=== PATIENT | male | born 1995 | race Two or more races ===

== ENCOUNTER 2020-01-23 18:01 | Emergency (ER) | payer BC ==
[~2020-01-23] VITALS: Ht 172.7 cm; Wt 65.8 kg
--- NOTE | 2020-01-23 18:10 | NUR ---
Dr. Garvin at the bedside for MSE.
[2020-01-23] MEDS ORDERED: IV NORMAL SALINE 1000 ML BAG IV ONE (18:15)
[2020-01-23 18:29] LABS: EOSINOPHILS % (AUTO) 0.1 % (0.0-7.0); HEMATOCRIT 44.6 % (36.7-47.1); HEMOGLOBIN 15.3 g/dL (12.5-16.3); LYMPHOCYTES # (AUTO) 0.6 K/uL (20.0-40.0); MEAN CORPUSCULAR HEMOGLOBIN 31.7 uug (23.8-33.4); MEAN CORPUSCULAR HGB CONC 34 g/dL (32.5-36.3); MEAN CORPUSCULAR VOLUME 92.4 fL (73.0-96.2); MONOCYTES # (AUTO) 0.2 K/uL (2.0-10.0); MONOCYTES % (AUTO) 1.6 % (0.0-11.0); NEUTROPHILS # (AUTO) 10.7 K/uL (1.8-8.9); NEUTROPHILS % (AUTO) 93.3 % (38.5-71.5); PLATELET COUNT (AUTO) 209 K/uL (152-348); RED BLOOD CELL COUNT(AUTO) 4.82 MIL/uL (4.06-5.63); WHITE BLOOD COUNT (AUTO) 11.5 K/uL (3.6-10.2)
[2020-01-23 18:37] LABS: CARBON DIOXIDE 29 mmol/L (21-32); CHLORIDE 105 mmol/L (98-107); CREATININE 1.1 mg/dL (0.6-1.3); GLUCOSE 143 mg/dL (74-106); POTASSIUM 3.8 mmol/L (3.5-5.1); UREA NITROGEN, BLOOD 9 mg/dL (7-18)
[2020-01-23 18:43] LABS: ALANINE AMINOTRANSFERASE 78 U/L (16-63); ALKALINE PHOSPHATASE 90 U/L (50-136); ASPARTATE AMINOTRANSFERASE 25 U/L (15-37); BILIRUBIN,DIRECT 0.2 mg/dL (0.0-0.2); BILIRUBIN,TOTAL 0.5 mg/dL (0.2-1.0); TOTAL PROTEIN, SERUM 8.2 g/dL (6.4-8.2)
[2020-01-23 18:44] LABS: ACETAMINOPHEN < 2.0 ug/mL (10-30); ETHANOL < 3 MG/DL (0-0)
--- NOTE | 2020-01-23 18:49 | NUR ---
Pt returned from CT scan. Pt stable and nad noted upon returning.
[2020-01-23 18:58] LABS: THYROID STIMULATING HORMONE 0.968 mIU/mL (0.358-3.740)
--- NOTE | 2020-01-23 19:03 | NUR ---
Full SBAR report given to hourly shift manager ISAIAS Koch.
[2020-01-23 19:26] LABS: *BILIRUBIN,URIN NEGATIVE (NEGATIVE); *CLARITY,URINE CLEAR (CLEAR); *COLOR,URINE YELLOW (YELLOW); *KETONES,URINE NEGATIVE (NEGATIVE); *UROBILINOGEN,URINE 0.2 E.U./dl (NORMAL); LEUKOCYTE ESTERASE ,URINE NEGATIVE (NEGATIVE); NITRITE, URINE NEGATIVE (NEGATIVE); PH,URINE 7.5 (5.0-8.0); UGLUCOSE NEGATIVE (NEGATIVE)
[2020-01-23 19:32] LABS: *BLOOD, URINE TRACE (NEGATIVE)
[2020-01-23 19:34] LABS: RBC,URINE 0-3 /HPF (0-3); WBC,URINE NONE SEEN /HPF (0-3)
[2020-01-23 19:41] LABS: *AMPHETAMINE, URINE NEGATIVE (NEGATIVE); *BARBITURATE, URINE NEGATIVE (NEGATIVE); *CANNABINOID, URINE NEGATIVE (NEGATIVE); *COCCAINE, URINE NEGATIVE (NEGATIVE); *OPIATE, URINE NEGATIVE (NEGATIVE); *PHENCYCLIDINE SCREEN,URINE NEGATIVE (NEGATIVE)
--- NOTE | 2020-01-23 19:47 | NUR ---
Patient discharged to home in stable condition. Written and verbal after care instructions given. Patient verbalizes understanding of instructions. Stressed follow up or return to ER for worsening s/s. IV removed. Catheter intact and site benign. Pressure and 4x4 gauze applied to site. No bleeding noted. Patient able to ambulate with steady gait but requested to use wheel chair to his brother's car outside of ED.
[2020-01-23 19:50] VITALS: BP 137/86
== END 2020-01-23 19:47 | disposition home or self-care (01) ==
LOC: ER 18:05
DX: R41.82 Altered mental status, unspecified (principal); T41.205A Adverse effect of unspecified general anesthetics, initial encounter; Y92.530 Ambulatory surgery center as the place of occurrence of the external cause; D72.829 Elevated white blood cell count, unspecified
CPT/HCPCS: 36415; 70450; 71045; 80048; 80076; 80307 ×2; 80329; 81001; 82140; 84443; 84484; 85025; 85730; 93005; 96360; 99285; G0480; 70030-TC; J7030